=== PATIENT | female | born 1975 | race African-American/Black ===

== ENCOUNTER 2018-10-04 23:32 | Observation (INO) ==
[2018-10-05 01:10] LABS: Basophils % 0.3 %; Eosinophils # 0.1 K/mcL (0.0-0.6); Eosinophils % 1.4 %; Hematocrit 39.5 % (35.3-44.9); Hemoglobin 13.5 g/dL (11.5-15.4); Immature Granulocytes % 0.4 % (0-4); Lymphocytes # 2.5 K/mcL (0.6-4.6); Lymphocytes % 26.6 %; Mean Corpuscular HGB Conc 34.2 g/dL (31.6-35.5); Mean Corpuscular Hemoglobin 28.2 pg (28.0-33.3); Mean Corpuscular Volume 82.5 fL (83.0-100.0); Mean Platelet Volume 9.2 fL (9.4-12.4); Monocytes # 0.6 K/mcL (0.0-1.3); Monocytes % 6.9 %; Neutrophils # 5.9 K/mcL (1.6-8.9); Platelet Count 182 K/mcL (140-400); Red Blood Count 4.79 M/mcL (3.82-4.97); Red Cell Distribution Width 13.2 % (11.5-14.5); Segmented Neutrophils % 64.4 %
[2018-10-05] MEDS ORDERED: Nitroglycerin 0.4 MG TAB.SUBL SL PRN (01:15)
--- NOTE | 2018-10-05 01:15 | Emergency Department Note ---
Disposition Clinical Impression: Acute chest pain Disposition: Still a Patient Condition: Fair Instructions: Chest Pain (ED) Referrals: Jeannette Chan CNP [Primary Care Provider] - Forms: ED Satisfaction Letter Chest Pain HPI - General Chief Complaint: ED Chest Pain Stated Complaint: cp/jess/ left arm pain Time Seen by Provider: 10/04/18 23:46 Source: patient Mode of arrival: ambulatory Limitations: no limitations Vital Signs Reviewed: Yes Nursing Notes Reviewed: Yes - History of Present Illness HPI Narrative: 43-year-old female presents emergency Department with concerns of acute onset chest pain or difficulty breathing. Patient states the pain is sharp and stabbing center of her chest and radiates to left upper extremity. No history of cardiac disease however she does have a history of femoral aortic bypass Patient denies fever, chills, nausea, vomiting, diarrhea. She denies cough, recent trauma. Patient has not a long history of tobacco use. She has swelling of left lower extremity over the past 2-3 days. No history of cancer, recent travel, oral contraceptive use. Severity scale (1-10): 10 - Related Data Home Medications Medication Instructions Recorded Confirmed Amitriptyline [Elavil] 50 mg PO HS 08/24/18 08/24/18 Amlodipine Besylate 10 mg PO DAILY 08/24/18 08/24/18 Atorvastatin Calcium [Lipitor] 80 mg PO HS 08/24/18 08/24/18 Carvedilol [Coreg] 25 mg PO BID 08/24/18 08/24/18 Losartan Potassium [Cozaar] 100 mg PO DAILY 08/24/18 08/24/18 Melatonin 5 mg PO HS 08/24/18 08/24/18 Venlafaxine [Effexor] 37.5 mg PO BID 08/24/18 08/24/18 hydrOXYzine HCl [Hydroxyzine HCl] 50 mg PO Q8H PRN 08/24/18 08/24/18 Allergies Allergy/AdvReac Type Severity Reaction Status Date / Time meloxicam [From Mobic] Allergy Hives Verified 08/24/18 15:33 Sulfa (Sulfonamide Allergy Hives Verified 08/24/18 15:33 Antibiotics) All systems ED: reviewed and negative except as stated. 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 Bowel sounds present Neuro: A&O to person, place, time and situation. No focal deficits noted on exam Psychiatric: cooperative and appropriate mood and affect. - General Limitations: no limitations General appearance: alert, in no apparent distress Course Vital Signs Temperature 97.8 F 10/04/18 23:36 Pulse Rate 65 10/04/18 23:36 Respiratory Rate 16 10/04/18 23:36 Blood Pressure 158/95 10/04/18 23:36 O2 Sat by Pulse Oximetry 96 10/04/18 23:36 Temperature 97.8 F 10/04/18 23:36 Pulse Rate 72 10/05/18 01:29 Respiratory Rate 18 10/05/18 01:29 Blood Pressure 146/84 10/05/18 01:29 O2 Sat by Pulse Oximetry 96 10/05/18 01:29 Oxygen Delivery Oxygen Delivery Room Air Chest Pain - MDM Narrative Medical decision making narrative: Initial troponin negative. D-dimer elevated. Patient will receive CTA. She is high risk for cardiac disease and will likely be admitted for further care. Patient care was transferred to Dr. Rouse pending reevaluation, laboratory evaluation, CTA. - Medical Records Medical records reviewed: Yes I reviewed the patient's medical records. - Lab Data Lab results reviewed: Yes I reviewed the patient's lab results. Result diagrams: 10/05/18 00:51 10/05/18 00:51 Lab Results 10/05/18 10/05/18 10/05/18 Range/Units 00:51 00:51 00:51 WBC 9.2 (4.3-11.1) K/mcL RBC 4.79 (3.82-4.97) M/mcL Hgb 13.5 (11.5-15.4) g/dL Hct 39.5 (35.3-44.9) % MCV 82.5 L (83.0-100.0) fL MCH 28.2 (28.0-33.3) pg MCHC 34.2 (31.6-35.5) g/dL RDW 13.2 (11.5-14.5) % Plt Count 182 (140-400) K/mcL MPV 9.2 L (9.4-12.4) fL Immature Gran % 0.4 (0-4) % Seg Neutrophils % 64.4 % Lymphocytes % 26.6 % Monocytes % 6.9 % Eosinophils % 1.4 % Basophils % 0.3 % Neutrophils # 5.9 (1.6-8.9) K/mcL Lymphocytes # 2.5 (0.6-4.6) K/mcL Monocytes # 0.6 (0.0-1.3) K/mcL Eosinophils # 0.1 (0.0-0.6) K/mcL Basophils # 0.0 (0.0-0.2) K/mcL PT 11.3 (9.4-12.1) Seconds INR 1.0 APTT 65.1 H (26.0-36.0) Seconds D-Dimer (0-500) ng/mLFEU Sodium 138 (136-145) mEq/L Potassium 3.4 L (3.5-5.1) mEq/L Chloride 104 (98-107) mEq/L Carbon Dioxide 25 (23-29) mEq/L BUN 16 (6-20) mg/dL Creatinine 0.86 (0.60-1.20) mg/dL Est GFR ( Amer) > 60 (> 60) Est GFR (Non-Af Amer) > 60 (> 60) BUN/Creatinine Ratio 19 (6-26) Glucose 120 H (70-105) mg/dL Calculated Osmolality 288 (280-300) Calcium 9.7 (8.6-10.3) mg/dL Troponin I < 0.03 (< 0.04) ng/mL 10/05/18 Range/Units 00:51 WBC (4.3-11.1) K/mcL RBC (3.82-4.97) M/mcL Hgb (11.5-15.4) g/dL Hct (35.3-44.9) % MCV (83.0-100.0) fL MCH (28.0-33.3) pg MCHC (31.6-35.5) g/dL RDW (11.5-14.5) % Plt Count (140-400) K/mcL MPV (9.4-12.4) fL Immature Gran % (0-4) % Seg Neutrophils % % Lymphocytes % % Monocytes % % Eosinophils % % Basophils % % Neutrophils # (1.6-8.9) K/mcL Lymphocytes # (0.6-4.6) K/mcL Monocytes # (0.0-1.3) K/mcL Eosinophils # (0.0-0.6) K/mcL Basophils # (0.0-0.2) K/mcL PT (9.4-12.1) Seconds INR APTT (26.0-36.0) Seconds D-Dimer 2477 H (0-500) ng/mLFEU Sodium (136-145) mEq/L Potassium (3.5-5.1) mEq/L Chloride (98-107) mEq/L Carbon Dioxide (23-29) mEq/L BUN (6-20) mg/dL Creatinine (0.60-1.20) mg/dL Est GFR ( Amer) (> 60) Est GFR (Non-Af Amer) (> 60) BUN/Creatinine Ratio (6-26) Glucose (70-105) mg/dL Calculated Osmolality (280-300) Calcium (8.6-10.3) mg/dL Troponin I (< 0.04) ng/mL - Radiology Data Radiology results reviewed: Yes I reviewed the patient's radiology results. - EKG Data EKG attestation: Yes I reviewed and interpreted this EKG. EKG results narrative: Normal sinus rhythm with rate of 69 without evidence of STEMI or other dysrhythmia. QRS is 99, QTC 454. Heart Score - Score History: Moderately Suspicious EKG: Normal Age: 45-65 Risk Factors: 1-2 risk factors
[2018-10-05 01:17] LABS: Prothrombin Time 11.3 Seconds (9.4-12.1)
[2018-10-05 01:20] LABS: Activated Partial Thrombo Time 65.1 Seconds (26.0-36.0)
[2018-10-05 01:32] LABS: BUN/Creatinine Ratio 19 (6-26); Blood Urea Nitrogen 16 mg/dL (6-20); Calcium 9.7 mg/dL (8.6-10.3); Carbon Dioxide 25 mEq/L (23-29); Chloride 104 mEq/L (98-107); Glucose 120 mg/dL (70-105); Osmolality,Calculated 288 (280-300); Potassium 3.4 mEq/L (3.5-5.1); Sodium 138 mEq/L (136-145); Troponin I < 0.03 ng/mL (< 0.04); eGFR For Non-African Americans > 60 (> 60)
[2018-10-05] MEDS ORDERED: Isovue-370 500 ML INFUS..BTL IV ONE (01:39)
[2018-10-05] MEDS ORDERED: Acetaminophen 325 MG TABLET PO ONE (01:40)
--- NOTE | 2018-10-05 02:13 | Emergency Department Note ---
Disposition Clinical Impression: Acute chest pain Disposition: Admitted As Inpatient Condition: Fair Instructions: Chest Pain (ED) Referrals: Jeannette Chan, KYARA [Primary Care Provider] - Forms: ED Satisfaction Letter Time of Disposition: 04:37 General Adult HPI - General Chief complaint: ED Chest Pain Stated complaint: cp/jess/ left arm pain Time Seen by Provider: 10/04/18 23:46 Source: patient Mode of arrival: ambulatory Limitations: no limitations - History of Present Illness Pain Scale: 10 - Related Data Home Medications Medication Instructions Recorded Confirmed Amitriptyline [Elavil] 50 mg PO HS 08/24/18 08/24/18 Amlodipine Besylate 10 mg PO DAILY 08/24/18 08/24/18 Atorvastatin Calcium [Lipitor] 80 mg PO HS 08/24/18 08/24/18 Carvedilol [Coreg] 25 mg PO BID 08/24/18 08/24/18 Losartan Potassium [Cozaar] 100 mg PO DAILY 08/24/18 08/24/18 Melatonin 5 mg PO HS 08/24/18 08/24/18 Venlafaxine [Effexor] 37.5 mg PO BID 08/24/18 08/24/18 hydrOXYzine HCl [Hydroxyzine HCl] 50 mg PO Q8H PRN 08/24/18 08/24/18 Allergies Allergy/AdvReac Type Severity Reaction Status Date / Time meloxicam [From Mobic] Allergy Hives Verified 08/24/18 15:33 Sulfa (Sulfonamide Allergy Hives Verified 08/24/18 15:33 Antibiotics) Past Medical History - Past Medical History Medical history: Reports: fibromyalgia, hypertension, TIA, other Surgical history: Reports: other Psychiatric history: Reports: anxiety, depression DEAN OF GIRLS history: Reports: no DEAN OF GIRLS history - Social History Smoking Status: Current every day smoker Smokeless Tobacco Status: No Alcohol use: Reports: occasionally Drug use: Reports: none Physical Exam - General Limitations: no limitations General appearance: alert, in no apparent distress Course Course Narrative: This patient was signed out to me at shift change from Dr. Jhoan Barrett. Please refer to his note for complete details of the history and physical examination. At shift change patient is awaiting a CTA of the chest to rule out pulmonary embolism prior to admission for chest pain. Patient presented with some left- sided chest pain which started about 9:30 this evening. The pain radiated to the left arm. She complains of some numbness and tingling in the left arm. Cardiac workup is negative but patient did have a significantly elevated d- dimer. She does complain of some increased pain and swelling in the left lower leg from the knee to the ankle recently however she has chronic back pain and peripheral artery disease. On exam I do not appreciate any swelling of the left lower leg. Patient CTA was negative for any evidence of pulmonary embolism. She did receive nitroglycerin with total relief of her chest pain. The hospitalist, Dr. Mtz, was consulted and accepted admission of the patient. - Consultations Consultation #1: The hospitalist, Dr. Mtz, was consulted and accepted admission of the patient. Time: 04:37 Vital Signs Temperature 97.8 F 10/04/18 23:36 Pulse Rate 65 10/04/18 23:36 Respiratory Rate 16 10/04/18 23:36 Blood Pressure 158/95 10/04/18 23:36 O2 Sat by Pulse Oximetry 96 10/04/18 23:36 Temperature 97.8 F 10/04/18 23:36 Pulse Rate 72 10/05/18 01:29 Respiratory Rate 18 10/05/18 01:29 Blood Pressure 146/84 10/05/18 01:29 O2 Sat by Pulse Oximetry 96 10/05/18 01:29 Oxygen Delivery Oxygen Delivery Room Air Medical Decision Making - Lab Data Lab results reviewed: Yes I reviewed the patient's lab results. Result diagrams: 10/05/18 00:51 10/05/18 00:51 Lab Results 10/05/18 10/05/18 10/05/18 Range/Units 00:51 00:51 00:51 WBC 9.2 (4.3-11.1) K/mcL RBC 4.79 (3.82-4.97) M/mcL Hgb 13.5 (11.5-15.4) g/dL Hct 39.5 (35.3-44.9) % MCV 82.5 L (83.0-100.0) fL MCH 28.2 (28.0-33.3) pg MCHC 34.2 (31.6-35.5) g/dL RDW 13.2 (11.5-14.5) % Plt Count 182 (140-400) K/mcL MPV 9.2 L (9.4-12.4) fL Immature Gran % 0.4 (0-4) % Seg Neutrophils % 64.4 % Lymphocytes % 26.6 % Monocytes % 6.9 % Eosinophils % 1.4 % Basophils % 0.3 % Neutrophils # 5.9 (1.6-8.9) K/mcL Lymphocytes # 2.5 (0.6-4.6) K/mcL Monocytes # 0.6 (0.0-1.3) K/mcL Eosinophils # 0.1 (0.0-0.6) K/mcL Basophils # 0.0 (0.0-0.2) K/mcL PT 11.3 (9.4-12.1) Seconds INR 1.0 APTT 65.1 H (26.0-36.0) Seconds D-Dimer (0-500) ng/mLFEU Sodium 138 (136-145) mEq/L Potassium 3.4 L (3.5-5.1) mEq/L Chloride 104 (98-107) mEq/L Carbon Dioxide 25 (23-29) mEq/L BUN 16 (6-20) mg/dL Creatinine 0.86 (0.60-1.20) mg/dL Est GFR ( Amer) > 60 (> 60) Est GFR (Non-Af Amer) > 60 (> 60) BUN/Creatinine Ratio 19 (6-26) Glucose 120 H (70-105) mg/dL Calculated Osmolality 288 (280-300) Calcium 9.7 (8.6-10.3) mg/dL Troponin I < 0.03 (< 0.04) ng/mL 10/05/18 Range/Units 00:51 WBC (4.3-11.1) K/mcL RBC (3.82-4.97) M/mcL Hgb (11.5-15.4) g/dL Hct (35.3-44.9) % MCV (83.0-100.0) fL MCH (28.0-33.3) pg MCHC (31.6-35.5) g/dL RDW (11.5-14.5) % Plt Count (140-400) K/mcL MPV (9.4-12.4) fL Immature Gran % (0-4) % Seg Neutrophils % % Lymphocytes % % Monocytes % % Eosinophils % % Basophils % % Neutrophils # (1.6-8.9) K/mcL Lymphocytes # (0.6-4.6) K/mcL Monocytes # (0.0-1.3) K/mcL Eosinophils # (0.0-0.6) K/mcL Basophils # (0.0-0.2) K/mcL PT (9.4-12.1) Seconds INR APTT (26.0-36.0) Seconds D-Dimer 2477 H (0-500) ng/mLFEU Sodium (136-145) mEq/L Potassium (3.5-5.1) mEq/L Chloride (98-107) mEq/L Carbon Dioxide (23-29) mEq/L BUN (6-20) mg/dL Creatinine (0.60-1.20) mg/dL Est GFR ( Amer) (> 60) Est GFR (Non-Af Amer) (> 60) BUN/Creatinine Ratio (6-26) Glucose (70-105) mg/dL Calculated Osmolality (280-300) Calcium (8.6-10.3) mg/dL Troponin I (< 0.04) ng/mL - Radiology Data Radiology results reviewed: Yes I reviewed the patient's radiology results. Chest X-Ray 10/05/18 00:00 IMPRESSION: No acute cardiopulmonary process D/ / Oscar Chaney / Oscar Chaney Interpreting Provider: Oscar Chaney Chest CTA 10/05/18 01:39 IMPRESSION: 1. No definite scan evidence for pulmonary embolus. 2. Coronary artery disease. 3. Emphysema. D/ / Wes Rocha MD / Wes Rocha MD Interpreting Provider: Wes Rocha MD
[2018-10-05] MEDS ORDERED: *HR* HYDROcodone/Acet 5/325 mg TABLET PO ONE (04:38)
[2018-10-05] MEDS ORDERED: Acetaminophen/Aspirin/Caffeine TABLET PO ONE (06:57)
[2018-10-05] MEDS ORDERED: Naloxone 0.4 MG/ML INJ IVP PRN (08:41)
[2018-10-05] MEDS ORDERED: Acetaminophen 325 MG TABLET PO PRN ×2 (08:41→08:43)
--- NOTE | 2018-10-05 09:13 | Internal Med History&Physical ---
Date of Encounter: 10/05/18 Time of Encounter: 09:07 Internal Medicine - H&P: HPI Chief complaint: CP Admitted From: Emergency Dept Plans for Post Hospital Care: Home History of present illness: Ms. 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 Presented to [facility] with complaints of CP that started while she was putting up a thierry tree. Pain started midsternal and radiated to L arm described the pain as heavy- as if someone was pushing on her chest and she had numbness tingling to L arm. The pain was relieved with nitroglycerine X1 . Endorsed associated sx of SOB nausea and lightheadedness. Patient is 1 ppd smoker Intial troponin was negative EKG with no ST T wave abnormality. She did have a stress test several years ago and it was normal per patient report. Currently she complains of headache but no CP at this time. Past Med Surg Social Fam HX - Past Medical History Medical history: fibromyalgia, hypertension, TIA, other Additional medical history: lupus Psychiatric history: anxiety, depression - Past Surgical History Surgical History: other Additional surgical history: hernia repair w/mesh. artery bypass in abdomen - Social History Smoking Status: Current every day smoker Smokeless Tobacco Status: No Alcohol use: occasionally Drug use: none - Family History Mother Living Status: Age at : 54 Cause of : heart attack/ stroke Hx Family Cardiac Disorders: Yes Father Living Status: Still Living Age at : 89 Hx Family Cardiac Disorders: Yes (defib, htn) Sister Living Status: Still Living Age at : 50 Hx Family Cardiac Disorders: Yes (stroke) Internal Medicine - H&P: Meds Amitriptyline [Elavil] 50 mg PO HS 08/24/18 [History] Amlodipine Besylate 10 mg PO DAILY 08/24/18 [History] Atorvastatin Calcium [Lipitor] 80 mg PO HS 08/24/18 [History] Carvedilol [Coreg] 25 mg PO BID 08/24/18 [History] Losartan Potassium [Cozaar] 100 mg PO DAILY 08/24/18 [History] Melatonin 5 mg PO HS 08/24/18 [History] Venlafaxine [Effexor] 37.5 mg PO BID 08/24/18 [History] hydrOXYzine HCl [Hydroxyzine HCl] 50 mg PO Q8H PRN 08/24/18 [History] Allergy/AdvReac Type Severity Reaction Status Date / Time meloxicam [From [facility]] Allergy Hives Verified 08/24/18 15:33 Sulfa (Sulfonamide Allergy Hives Verified 08/24/18 15:33 Antibiotics) All Systems PM: A 10-system review of systems was performed and is negative for pertinent findings except as documented above in the HPI. - Constitutional Vitals: Temp Pulse Resp BP Pulse Ox 97.7 F 74 17 134/92 97 10/05/18 06:37 10/05/18 06:37 10/05/18 06:37 10/05/18 06:37 10/05/18 06:37 General appearance: Present: A&O X 3 Exam: . - Head Head exam: Present: atraumatic, normocephalic - Eye Eye exam: Present: PERRL, conjuntiva pink, sclera anicteric Pupils: Present: PERRL - Neck Neck exam general surgery: Present: supple, trachea midline. Absent: lymphadenopathy - Respiratory Respiratory exam: Present: CTAB. Absent: accessory muscle use, rales, rhonchi, wheezes - Cardiovascular Cardiovascular exam: Present: RRR, +S1, +S2. Absent: diastolic murmur, gallop, rubs, systolic murmur - GI/Abdominal GI/Abdominal exam: Present: normal bowel sounds, soft, no peritoneal signs. Absent: distended, tenderness - Extremities Exam Extremities exam: Present: warm, radial pulses palpable and symmetrical. Absent: calf tenderness, cyanotic, pedal edema - Neurological Exam Neurological exam: Present: CN II-XII intact, oriented X3, no focal deficits. Absent: pronater drift, facial droop, speech deficit - Skin Skin exam: Present: dry, intact Internal Med - H&P Results - Labs CBC & Chem 7: 10/05/18 00:51 10/05/18 00:51 Labs: Short CBC 10/05/18 Range/Units 00:51 WBC 9.2 (4.3-11.1) K/mcL Hgb 13.5 (11.5-15.4) g/dL Hct 39.5 (35.3-44.9) % Plt Count 182 (140-400) K/mcL Neutrophils # 5.9 (1.6-8.9) K/mcL BMP 10/05/18 00:51 Sodium 138 Potassium 3.4 L Chloride 104 Carbon Dioxide 25 BUN 16 Creatinine 0.86 Glucose 120 H Calcium 9.7 Cardiac Enzymes 10/05/18 Range/Units 00:51 Troponin I < 0.03 (< 0.04) ng/mL - Impressions ITS Impressions Chest X-Ray 10/05/18 00:00 IMPRESSION: No acute cardiopulmonary process D/ / Oscar Chaney / Oscar Chaney Interpreting Provider: Oscar Chaney Chest CTA 10/05/18 01:39 IMPRESSION: 1. No definite scan evidence for pulmonary embolus. 2. Coronary artery disease. 3. Emphysema. D/ / Wes Rocha MD / Wes Rocha MD Interpreting Provider: Wes Rocha MD - Assessment and plan (1) Acute chest pain Current Visit: Yes Status: Acute Assessment and plan: 1 Presented with L sided CP radiating to L arm relieved with nitro- elevated d dimer CTA negative Trop negative Ekg with no ST T wave abnormality Echo ordered Cardiac stress test- 2 day Asa Statin BB TALON once confirmed nitro as needed for CP cardiac monitoring (2) DVT prophylaxis Current Visit: No Status: Acute (3) HLD (hyperlipidemia) Current Visit: No Status: Acute Qualifiers: Hyperlipidemia type: unspecified Qualified Code(s): E78.5 - Hyperlipidemia, unspecified (4) HTN (hypertension), benign Current Visit: No Status: Acute (5) QUIRINO (obstructive sleep apnea) Current Visit: No Status: Acute - Time Spent With Patient Total time spent is greater than 50% in coordination of care (as documented) at patient's floor/unit and/or counseling patient:
[2018-10-05] MEDS ORDERED: Ketorolac 15 MG/ML VIAL IVP ONE (11:40)
[2018-10-05] MEDS ORDERED: Regadenoson 0.4 MG/5 ML SYRINGE IVP ONE ×2 (12:28→12:32)
[2018-10-05] MEDS: *HR* HYDROcodone/Acet 5/325 mg TABLET PO PRN ×2 (13:50→20:34)
[2018-10-06] MEDS ORDERED: Melatonin 3 MG TABLET PO PRN (00:40)
[2018-10-06 03:43] LABS: Basophils % 0.4 %; Eosinophils # 0.1 K/mcL (0.0-0.6); Eosinophils % 1.8 %; Hematocrit 40.8 % (35.3-44.9); Hemoglobin 13.2 g/dL (11.5-15.4); Immature Granulocytes % 0.4 % (0-4); Lymphocytes # 2.2 K/mcL (0.6-4.6); Lymphocytes % 31.3 %; Mean Corpuscular HGB Conc 32.4 g/dL (31.6-35.5); Mean Corpuscular Hemoglobin 27.2 pg (28.0-33.3); Mean Corpuscular Volume 84.1 fL (83.0-100.0); Mean Platelet Volume 9.1 fL (9.4-12.4); Monocytes # 0.7 K/mcL (0.0-1.3); Monocytes % 9.1 %; Neutrophils # 4.1 K/mcL (1.6-8.9); Platelet Count 198 K/mcL (140-400); Red Blood Count 4.85 M/mcL (3.82-4.97); Red Cell Distribution Width 13.2 % (11.5-14.5)
[2018-10-06 04:01] LABS: Blood Urea Nitrogen 13 mg/dL (6-20); Calcium 9.1 mg/dL (8.6-10.3); Carbon Dioxide 26 mEq/L (23-29); Chloride 106 mEq/L (98-107); Cholesterol 145 mg/dL (< 200); Glucose 123 mg/dL (70-105); HDL Cholesterol 49 mg/dL (40-59); LDL Cholesterol,Calculated 73 mg/dL (0-99); Osmolality,Calculated 291 (280-300); Potassium 3.6 mEq/L (3.5-5.1); Sodium 140 mEq/L (136-145); Triglycerides 114 mg/dL (< 150)
[2018-10-06] MEDS: *HR* HYDROcodone/Acet 5/325 mg TABLET PO PRN ×2 (04:32→13:34)
[2018-10-06 05:00] LABS: BUN/Creatinine Ratio 15 (6-26); eGFR For Non-African Americans > 60 (> 60)
[2018-10-06] MEDS ORDERED: Aspirin 81 MG TAB.CHEW PO SCH (09:00)
--- NOTE | 2018-10-06 10:03 | Electrocardiograph Report ---
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
--- NOTE | 2018-10-06 16:48 | Discharge Summary ---
- NOTES TO OUTPATIENT PROVIDER Notes to Outpatient Provider: Presented with cp - trop negative echo with EF 55- 60% mild diastolic dysfunction -chest CTA negative underwent 2 days cardiac stress which was negative for any ischemia or infarct Orders not resulted at time of discharge: Pending orders 10/05/18 09:14 NM maci perf SPECT multi [NM] Routine Date of Encounter: 10/06/18 Time of Encounter: 16:48 - Discharge Diagnosis (1) Acute chest pain Priority: Primary Status: Acute (2) HLD (hyperlipidemia) Priority: Secondary Status: Acute Qualifiers: Hyperlipidemia type: unspecified Qualified Code(s): E78.5 - Hyperlipidemia, unspecified (3) HTN (hypertension), benign Priority: Secondary Status: Acute (4) QUIRINO (obstructive sleep apnea) Priority: Secondary Status: Acute Hospital course: Ms. 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 Presented to [facility] with complaints of CP that started while she was putting up a thierry tree. Pain started midsternal and radiated to L arm described the pain as heavy- as if someone was pushing on her chest and she had numbness tingling to L arm. The pain was relieved with nitroglycerine X1 . Endorsed associated sx of SOB nausea and lightheadedness. Patient is 1 ppd smoker troponin was negativex [address] T wave abnormality echo with EF 55-60% she underwent a 2 day stress test which was negative for any ischemia of infarct. She has not had any CP during admission. She did have a slight elevation of BP because she did not have home medications- home medications resumed- advised patient to follow up with PCP since this provider knows her best and can adjust medications accordingly She is hemodynamically stable and ready for discharge Patient requesting prescription for pain medication advised patient to follow up with PCP Discharge discussed with: patient - Time Spent with Patient Total time spent providing and/or coordinating discharge services: - Discharge Medications Home Medications: Amitriptyline [Elavil] 50 mg PO HS 08/24/18 [History] Atorvastatin Calcium [Lipitor] 80 mg PO HS 08/24/18 [History] Melatonin 10 mg PO HS 08/24/18 [History] hydrOXYzine HCl [Hydroxyzine HCl] 50 mg PO Q8H PRN 08/24/18 [History] Aspirin [Lo-Dose Aspirin EC] 81 mg PO DAILY 10/06/18 [History] Duloxetine HCl [Cymbalta] 60 mg PO BID 10/06/18 [History] Fluticasone Propionate Nasal [Flonase] 1 spray NS BID 10/06/18 [History] Ipratropium [place] 1 spray NS BID 10/06/18 [History] Labetalol HCl 300 mg PO BID 10/06/18 [History] amLODIPine [Norvasc] 5 mg PO DAILY 10/06/18 [History] Allergies/Adverse Reactions: Allergy/AdvReac Type Severity Reaction Status Date / Time meloxicam [From Mobic] Allergy Hives Verified 10/06/18 08:42 Sulfa (Sulfonamide Allergy Hives Verified 10/06/18 08:42 Antibiotics) Date of admission: 10/05/18 05:38 Primary care physician: Jeannette Chan [employer] Discharging clinician: Corie Mejias Anticipated date of discharge: 10/06/18 - Constitutional Vitals: Temp Pulse Resp BP Pulse Ox 98.2 F 83 17 158/99 97 10/06/18 15:44 10/06/18 15:44 10/06/18 15:44 10/06/18 15:44 10/06/18 15:44 General appearance: Present: A&O X 3, obese Exam: . - Head Head exam: Present: atraumatic, normocephalic - Eye Eye exam: Present: PERRL, conjuntiva pink, sclera anicteric Pupils: Present: PERRL - Neck Neck exam general surgery: Present: supple, trachea midline. Absent: lymphadenopathy - Respiratory Respiratory exam: Present: CTAB. Absent: accessory muscle use, rales, rhonchi, wheezes - Cardiovascular Cardiovascular exam: Present: RRR, +S1, +S2. Absent: diastolic murmur, gallop, rubs, systolic murmur - GI/Abdominal GI/Abdominal exam: Present: normal bowel sounds, soft, no peritoneal signs. Absent: distended, tenderness - Extremities Exam Extremities exam: Present: warm, radial pulses palpable and symmetrical. Absent: calf tenderness, cyanotic, pedal edema - Neurological Exam Neurological exam: Present: CN II-XII intact, oriented X3, no focal deficits. Absent: pronater drift, facial droop, speech deficit - Skin Skin exam: Present: dry, intact - Patient Status Disposition: Home, Self-Care Condition: Fair Functional capacity at discharge: independent ambulation - Discharge Instructions Instructions: Chest Pain (DC) Follow Up With: Jeannette Chan CNP [Primary Care Provider] - 10/12/18 10:30 am () Federico Hand DO [Partnered Physician] - 10/19/18 8:00 am - Diet and Activity Activity: increase activity as tolerated Diet: advance to your usual diet
[2018-10-06] MEDS ORDERED: amLODIPine 5 MG TABLET PO SCH (17:24)
[2018-10-06 18:18] VITALS: BP 143/93
[2018-10-07] MEDS ORDERED: Aspirin Enteric Coated 81 MG Tablet PO SCH (09:00)
[2018-10-07] MEDS ORDERED: amLODIPine 5 MG TABLET PO SCH (16:46)
--- NOTE | 2018-10-07 18:02 | Electrocardiograph Report ---
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
== END 2018-10-06 18:22 | disposition home or self-care (01) ==
LOC: EMEROOARM 23:32 → 3BNU 23:32
PROVIDERS: ADMIT Internal Medicine; ATTEND Internal Medicine

== ENCOUNTER 2020-03-01 15:36 | Inpatient (IN) ==
[2020-03-01] MEDS ORDERED: Aspirin 325 MG TABLET PO ONE (16:09)
[2020-03-01 16:22] LABS: Basophils % 0.3 %; Eosinophils # 0.1 K/mcL (0.0-0.6); Eosinophils % 0.5 %; Hematocrit 51.2 % (35.3-44.9); Hemoglobin 16.9 g/dL (11.5-15.4); Immature Granulocytes % 0.9 % (0-4); Lymphocytes # 3.5 K/mcL (0.6-4.6); Lymphocytes % 24.2 %; Mean Corpuscular Hemoglobin 26.5 pg (28.0-33.3); Mean Corpuscular Volume 80.4 fL (83.0-100.0); Mean Platelet Volume 9.8 fL (9.4-12.4); Monocytes # 0.8 K/mcL (0.0-1.3); Monocytes % 5.6 %; Platelet Count 225 K/mcL (140-400); Red Blood Count 6.37 M/mcL (3.82-4.97); Red Cell Distribution Width 15.6 % (11.5-14.5); Segmented Neutrophils % 68.5 %; White Blood Count 14.6 K/mcL (4.3-11.1)
[2020-03-01 16:30] LABS: BUN/Creatinine Ratio 18 (6-26); Blood Urea Nitrogen 15 mg/dL (6-20); Calcium 9.4 mg/dL (8.6-10.3); Carbon Dioxide 28 mEq/L (23-29); Chloride 99 mEq/L (98-107); Glucose 199 mg/dL (70-105); Osmolality,Calculated 290 (280-300); Potassium 3.2 mEq/L (3.5-5.1); Sodium 137 mEq/L (136-145); Troponin I < 0.03 ng/mL (< 0.04); eGFR For African Americans > 60 (> 60); eGFR For Non-African Americans > 60 (> 60)
[2020-03-01] MEDS ORDERED: Isovue-370 500 ML BOTTLE IVP ONE (17:39)
[2020-03-02] MEDS ORDERED: Naloxone 0.4 MG/ML INJ IVP PRN (00:53)
[2020-03-02] MEDS ORDERED: hydrOXYzine pamoate 25 MG CAPSULE PO PRN (00:55)
[2020-03-02] MEDS: Nicotine 21 MG PATCH.TD24 TD SCH ×2 (01:31→21:12)
[2020-03-02] MEDS: Melatonin 3 MG TABLET PO SCH (01:31)
[2020-03-02] MEDS ORDERED: Potassium Chloride 40 MEQ, Lidocaine 1% 2 ML in 0.9 % Sodium Chloride 500 ML IVPB ONE (03:00)
[2020-03-02] MEDS ORDERED: Ondansetron 4 MG/2 ML VIAL IVP PRN (04:58)
[2020-03-02] MEDS: *HR* Heparin 5,000 UNIT/ML VIAL SQ SCH ×2 (05:18→17:20)
[2020-03-02 06:18] LABS: Hematocrit 46.2 % (35.3-44.9); Hemoglobin 15.4 g/dL (11.5-15.4); Mean Corpuscular HGB Conc 33.3 g/dL (31.6-35.5); Mean Corpuscular Hemoglobin 26.7 pg (28.0-33.3); Mean Corpuscular Volume 80.1 fL (83.0-100.0); Mean Platelet Volume 9.2 fL (9.4-12.4); Platelet Count 187 K/mcL (140-400); Red Blood Count 5.77 M/mcL (3.82-4.97); White Blood Count 11.5 K/mcL (4.3-11.1)
[2020-03-02 06:42] LABS: BUN/Creatinine Ratio 19 (6-26); Blood Urea Nitrogen 14 mg/dL (6-20); Calcium 8.7 mg/dL (8.6-10.3); Carbon Dioxide 26 mEq/L (23-29); Chloride 100 mEq/L (98-107); Glucose 158 mg/dL (70-105); Osmolality,Calculated 286 (280-300); Potassium 3.2 mEq/L (3.5-5.1); Sodium 136 mEq/L (136-145); eGFR For African Americans > 60 (> 60); eGFR For Non-African Americans > 60 (> 60)
[2020-03-02] MEDS: Aspirin Enteric Coated 81 MG Tablet PO SCH (08:18)
[2020-03-02] MEDS: tiZANidine 4 MG TABLET PO SCH ×3 (08:18→21:11)
[2020-03-02] MEDS: Gabapentin 300 MG CAPSULE PO SCH ×3 (08:18→21:11)
[2020-03-02] MEDS: amLODIPine 5 MG TABLET PO SCH (08:18)
[2020-03-02 11:22] LABS: Estimated Average Glucose 169 mg/dl
[2020-03-02] MEDS: 0.9 % Sodium Chloride 1,000 ML IV SCH (17:20)
[2020-03-03] MEDS: Melatonin 3 MG TABLET PO SCH (00:16)
[2020-03-03 05:16] LABS: Basophils % 0.4 %; Eosinophils # 0.1 K/mcL (0.0-0.6); Eosinophils % 0.6 %; Hematocrit 45.3 % (35.3-44.9); Hemoglobin 14.3 g/dL (11.5-15.4); Immature Granulocytes % 0.6 % (0-4); Lymphocytes % 18.5 %; Mean Corpuscular HGB Conc 31.6 g/dL (31.6-35.5); Mean Corpuscular Volume 82.2 fL (83.0-100.0); Mean Platelet Volume 9.8 fL (9.4-12.4); Monocytes # 0.9 K/mcL (0.0-1.3); Neutrophils # 7.8 K/mcL (1.6-8.9); Platelet Count 202 K/mcL (140-400); Red Blood Count 5.51 M/mcL (3.82-4.97); Red Cell Distribution Width 15.4 % (11.5-14.5); Segmented Neutrophils % 71.9 %; White Blood Count 10.9 K/mcL (4.3-11.1)
[2020-03-03] MEDS: *HR* Heparin 5,000 UNIT/ML VIAL SQ SCH (05:19)
[2020-03-03 05:32] LABS: BUN/Creatinine Ratio 17 (6-26); Blood Urea Nitrogen 14 mg/dL (6-20); Calcium 8.5 mg/dL (8.6-10.3); Carbon Dioxide 25 mEq/L (23-29); Chloride 102 mEq/L (98-107); Chol/HDL Ratio 3.5 (0-4.9); Cholesterol 173 mg/dL (< 200); Glucose 120 mg/dL (70-105); HDL Cholesterol 50 mg/dL (40-59); LDL Cholesterol,Calculated 90 mg/dL (0-99); Osmolality,Calculated 282 (280-300); Potassium 3.7 mEq/L (3.5-5.1); Sodium 135 mEq/L (136-145); Triglycerides 163 mg/dL (< 150); eGFR For African Americans > 60 (> 60); eGFR For Non-African Americans > 60 (> 60)
[2020-03-03] MEDS: 0.9 % Sodium Chloride 1,000 ML IV SCH (07:21)
[2020-03-03] MEDS: amLODIPine 5 MG TABLET PO SCH ×2 (07:25→07:45)
[2020-03-03] MEDS: Aspirin Enteric Coated 81 MG Tablet PO SCH (07:25)
[2020-03-03] MEDS: Gabapentin 300 MG CAPSULE PO SCH (07:25)
[2020-03-03] MEDS: tiZANidine 4 MG TABLET PO SCH (07:25)
[2020-03-03] MEDS ORDERED: Regadenoson 0.4 MG/5 ML SYRINGE IVP ONE (07:59)
[2020-03-03 09:15] VITALS: BP 160/91
== END 2020-03-03 14:46 | disposition home or self-care (01) | DRG 206 ==
LOC: 3BNU 15:36 → EMEROOARM 15:36 → SUATTDRO 19:22 → 3BNU 19:58
PROVIDERS: ADMIT Family Medicine; ATTEND Internal Medicine

== ENCOUNTER 2020-07-15 13:03 | Observation (INO) ==
[2020-07-15] MEDS ORDERED: amLODIPine 5 MG TABLET PO SCH (13:30)
[2020-07-15 14:10] LABS: Basophils % 0.3 %; Eosinophils # 0.1 K/mcL (0.0-0.6); Eosinophils % 1.4 %; Hematocrit 47.1 % (35.3-44.9); Hemoglobin 15.4 g/dL (11.5-15.4); Immature Granulocytes % 0.3 % (0-4); Lymphocytes # 1.5 K/mcL (0.6-4.6); Lymphocytes % 20.5 %; Mean Corpuscular HGB Conc 32.7 g/dL (31.6-35.5); Mean Corpuscular Hemoglobin 27.3 pg (28.0-33.3); Mean Corpuscular Volume 83.5 fL (83.0-100.0); Mean Platelet Volume 9.4 fL (9.4-12.4); Monocytes # 0.5 K/mcL (0.0-1.3); Monocytes % 6.6 %; Neutrophils # 5.2 K/mcL (1.6-8.9); Platelet Count 234 K/mcL (140-400); Red Blood Count 5.64 M/mcL (3.82-4.97); Red Cell Distribution Width 15.5 % (11.5-14.5); Segmented Neutrophils % 70.9 %; White Blood Count 7.3 K/mcL (4.3-11.1)
[2020-07-15 14:33] LABS: Alanine Aminotransferase 12 Units/L (7-52); Albumin 4.2 g/dL (3.5-5.7); Albumin/Globulin Ratio 1.4 (1.1-2.2); Alkaline Phosphatase 97 Units/L (34-104); Aspartate Amino Transferase 14 Units/L (13-39); BUN/Creatinine Ratio 13 (6-26); Bilirubin,Total 0.6 mg/dL (0.3-1.0); Blood Urea Nitrogen 10 mg/dL (6-20); Calcium 9.5 mg/dL (8.6-10.3); Carbon Dioxide 27 mEq/L (23-29); Chloride 99 mEq/L (98-107); Globulin 2.9 g/dL (2.4-3.5); Glucose 124 mg/dL (70-105); Osmolality,Calculated 286 (280-300); Potassium 3.4 mEq/L (3.5-5.1); Sodium 138 mEq/L (136-145); Total Protein 7.1 g/dL (6.4-8.9); Troponin I < 0.03 ng/mL (< 0.04); eGFR For African Americans > 60 (> 60); eGFR For Non-African Americans > 60 (> 60)
[2020-07-15] MEDS: atenoloL 25 MG TABLET PO SCH (14:34)
[2020-07-15] MEDS ORDERED: *HR* Labetalol 20 MG/4 ML SYRINGE IVP ONE ×2 (16:13→17:12)
[2020-07-15] MEDS ORDERED: Metoclopramide 10 MG/2 ML VIAL IVP ONE (17:27)
[2020-07-15] MEDS ORDERED: Acetaminophen 325 MG TABLET PO PRN (20:02)
[2020-07-15] MEDS ORDERED: Naloxone 0.4 MG/ML INJ IVP PRN (20:02)
[2020-07-15] MEDS ORDERED: Ondansetron ODT 4 MG TAB.RAPDIS SL PRN (20:02)
[2020-07-15] MEDS ORDERED: *HR* Dextrose 50 % in Water (Vial) 50 ML VIAL IVP PRN (20:06)
[2020-07-15] MEDS ORDERED: D5% in Water 1,000 ML IVC PRN (20:06)
[2020-07-15] MEDS ORDERED: Dextrose Gel 15 GM/37.5 ML TUBE PO PRN ×2 (20:06)
[2020-07-15] MEDS ORDERED: Potassium Chloride Elixir 20 MEQ/15 ML UDC PO ONE (20:12)
[2020-07-15 20:23] LABS: Chol/HDL Ratio 5.2 (0-4.9); Cholesterol 191 mg/dL (< 200); HDL Cholesterol 37 mg/dL (40-59); LDL Cholesterol,Calculated 121 mg/dL (< 100); Magnesium 1.9 mg/dL (1.6-2.6); Phosphorous 3.7 mg/dL (2.7-4.5); Triglycerides 167 mg/dL (< 150)
[2020-07-15] MEDS: *HR* Heparin 5,000 UNIT/ML VIAL SQ SCH (20:52)
[2020-07-15] MEDS: Acetaminophen/Aspirin/Caffeine TABLET PO PRN ×2 (23:02→23:07)
[2020-07-15] MEDS ORDERED: hydrOXYzine pamoate 25 MG CAPSULE PO PRN (23:49)
[2020-07-16] MEDS ORDERED: Insulin LISPRO 300 UNITS/3 ML VIAL SQ SCH
[2020-07-16] MEDS: Insulin LISPRO 300 UNITS/3 ML VIAL SQ SCH ×2 (02:31→05:39)
[2020-07-16] MEDS ORDERED: amLODIPine 5 MG TABLET PO ONE (02:42)
[2020-07-16] MEDS ORDERED: Ipratropium 1 PUFF INHALER IH SCH (05:00)
[2020-07-16] MEDS: *HR* Heparin 5,000 UNIT/ML VIAL SQ SCH (05:53)
[2020-07-16 07:07] LABS: Basophils % 0.4 %; Eosinophils # 0.1 K/mcL (0.0-0.6); Eosinophils % 1.8 %; Hematocrit 45.9 % (35.3-44.9); Hemoglobin 14.8 g/dL (11.5-15.4); Immature Granulocytes % 0.5 % (0-4); Lymphocytes # 1.6 K/mcL (0.6-4.6); Lymphocytes % 29.2 %; Mean Corpuscular HGB Conc 32.2 g/dL (31.6-35.5); Mean Corpuscular Hemoglobin 26.4 pg (28.0-33.3); Mean Corpuscular Volume 81.8 fL (83.0-100.0); Mean Platelet Volume 9.4 fL (9.4-12.4); Monocytes # 0.5 K/mcL (0.0-1.3); Monocytes % 8.8 %; Neutrophils # 3.3 K/mcL (1.6-8.9); Platelet Count 249 K/mcL (140-400); Prothrombin Time 11.5 Seconds (9.4-12.1); Red Blood Count 5.61 M/mcL (3.82-4.97); Red Cell Distribution Width 15.3 % (11.5-14.5); Segmented Neutrophils % 59.3 %; White Blood Count 5.5 K/mcL (4.3-11.1)
[2020-07-16 07:09] LABS: Activated Partial Thrombo Time 56.2 Seconds (26.0-36.0)
[2020-07-16 07:28] LABS: BUN/Creatinine Ratio 13 (6-26); Blood Urea Nitrogen 11 mg/dL (6-20); Calcium 9.4 mg/dL (8.6-10.3); Carbon Dioxide 26 mEq/L (23-29); Chloride 103 mEq/L (98-107); Glucose 137 mg/dL (70-105); Osmolality,Calculated 290 (280-300); Potassium 3.8 mEq/L (3.5-5.1); Sodium 139 mEq/L (136-145); eGFR For African Americans > 60 (> 60); eGFR For Non-African Americans > 60 (> 60)
[2020-07-16] MEDS: atenoloL 25 MG TABLET PO SCH (07:47)
[2020-07-16] MEDS ORDERED: Aspirin 81 MG TAB.CHEW PO SCH (09:00)
[2020-07-16] MEDS ORDERED: Fluticasone Propionate Nasal 50 MCG/SPRAY BOTTLE NS SCH (09:00)
[2020-07-16] MEDS ORDERED: Gabapentin 300 MG CAPSULE PO SCH (09:00)
[2020-07-16] MEDS ORDERED: amLODIPine 5 MG TABLET PO SCH (09:00)
[2020-07-16 10:47] VITALS: BP 176/99
== END 2020-07-16 11:38 | disposition home or self-care (01) ==
LOC: EMEROOARM 13:03 → CDU 13:03
PROVIDERS: ADMIT Pharmacist; ATTEND Pharmacist

== ENCOUNTER 2021-09-09 22:58 | Inpatient (IN) ==
[2021-09-10] MEDS ORDERED: Morphine Sulfate 2 MG/ML SYRINGE IVP ONE ×2 (00:06→01:32)
[2021-09-10] MEDS ORDERED: Ondansetron 4 MG/2 ML VIAL IVP ONE (00:06)
[2021-09-10 00:28] LABS: Basophils % 0.4 %; Eosinophils # 0.1 K/mcL (0.0-0.6); Hematocrit 46.1 % (35.3-44.9); Hemoglobin 14.6 g/dL (11.5-15.4); Immature Granulocytes % 1.3 % (0-4); Lymphocytes % 25.5 %; Mean Corpuscular HGB Conc 31.7 g/dL (31.6-35.5); Mean Corpuscular Hemoglobin 25.7 pg (28.0-33.3); Mean Platelet Volume 9.3 fL (9.4-12.4); Monocytes # 0.6 K/mcL (0.0-1.3); Monocytes % 7.4 %; Neutrophils # 5.1 K/mcL (1.6-8.9); Platelet Count 274 K/mcL (140-400); Red Blood Count 5.69 M/mcL (3.82-4.97); Red Cell Distribution Width 15.8 % (11.5-14.5); Segmented Neutrophils % 64.4 %; White Blood Count 7.9 K/mcL (4.3-11.1)
[2021-09-10 00:36] LABS: Alanine Aminotransferase 10 Units/L (7-52); Albumin 4.1 g/dL (3.5-5.7); Albumin/Globulin Ratio 1.2 (1.1-2.2); Alkaline Phosphatase 101 Units/L (34-104); Aspartate Amino Transferase 11 Units/L (13-39); BUN/Creatinine Ratio 11 (6-26); Bilirubin,Direct 0.1 mg/dL (0.0-0.2); Bilirubin,Indirect 0.2 mg/dL (0.0-1.0); Bilirubin,Total 0.3 mg/dL (0.3-1.0); Blood Urea Nitrogen 11 mg/dL (6-20); Calcium 9.4 mg/dL (8.6-10.3); Carbon Dioxide 29 mEq/L (23-29); Chloride 101 mEq/L (98-107); Globulin 3.5 g/dL (2.4-3.5); Glucose 98 mg/dL (70-105); Lipase 34 Units/L (11-82); Osmolality,Calculated 287 (280-300); Potassium 3.5 mEq/L (3.5-5.1); Sodium 139 mEq/L (136-145); Total Protein 7.6 g/dL (6.4-8.9); eGFR For African Americans > 60 (> 60); eGFR For Non-African Americans > 60 (> 60)
[2021-09-10] MEDS ORDERED: Isovue-370 500 ML BOTTLE IVP ONE (00:56)
[2021-09-10 02:02] LABS: Bacteria,Urine Few per hpf (None-Few); Bilirubin,Urine Negative (Negative); Blood,Urine Negative (Negative); Clarity,Urine Clear (Clear); Color,Urine Colorless (Yellow); Glucose,Urine (UA) Normal (Normal); Ketones,Urine Negative (Negative); Leukocyte Esterase,Urine Small (Negative); Nitrite,Urine Negative (Negative); PH,Urine 6.5 pH Units (5.0-8.0); Protein,Urine Negative (Neg-Trace); RBC,Urine 0-3 per hpf (0-3); Specific Gravity,Urine 1.025 (1.010-1.025); Squamous Epithelial Cell,Urine Few per hpf (None-Few); Urobilinogen,Urine Normal (Normal); WBC,Urine 0-3 per hpf (0-3)
[2021-09-10] MEDS ORDERED: Aspirin 81 MG TAB.CHEW PO ONE (04:19)
[2021-09-10] MEDS ORDERED: Nitroglycerin 0.4 MG TAB.SUBL SL ONE (04:20)
[2021-09-10] MEDS ORDERED: Melatonin 3 MG TABLET PO PRN ×2 (05:48→17:43)
[2021-09-10] MEDS ORDERED: Naloxone 0.4 MG/ML INJ IVP PRN (05:48)
[2021-09-10] MEDS ORDERED: Acetaminophen 325 MG TABLET PO PRN (05:48)
[2021-09-10] MEDS ORDERED: *HR* HYDROcodone/Acet 5/325 mg TABLET PO PRN (05:48)
[2021-09-10] MEDS ORDERED: D5% in Water 1,000 ML IVC PRN (05:51)
[2021-09-10] MEDS ORDERED: *HR* Dextrose 50 % in Water (Syg) 50 ML SYRINGE IVP PRN (05:51)
[2021-09-10] MEDS ORDERED: Dextrose Gel 15 GM/37.5 ML TUBE PO PRN ×2 (05:51)
[2021-09-10] MEDS: Ondansetron 4 MG/2 ML VIAL IVP PRN ×2 (06:38→19:45)
[2021-09-10] MEDS: *HR* OxyCODONE Immed Rel 5 MG TABLET PO PRN ×3 (06:39→19:54)
[2021-09-10] MEDS: Insulin LISPRO 300 UNITS/3 ML VIAL SUBQ SCH ×4 (07:12→20:26)
[2021-09-10] MEDS: Sennosides/Docusate Sodium TABLET PO SCH ×2 (08:09→20:27)
[2021-09-10 09:13] LABS: Prothrombin Time 11.6 Seconds (9.4-12.1)
[2021-09-10 09:15] LABS: Activated Partial Thrombo Time 59.2 Seconds (26.0-36.0)
[2021-09-10] MEDS ORDERED: 0.9 % Sodium Chloride 500 ML ONE ×2 (11:13→11:30)
[2021-09-10] MEDS ORDERED: Lidocaine/EPI 1:100k 1% 50 ML VIAL ONE (11:13)
[2021-09-10] MEDS ORDERED: *HR* Midazolam HCl 2 MG/2 ML VIAL IVP ONE ×2 (11:28→11:43)
[2021-09-10] MEDS ORDERED: *HR* FentaNYL (PF) 100 MCG/2 ML VIAL IVP ONE ×2 (11:28→11:43)
[2021-09-10] MEDS ORDERED: Ampicillin/Sulbactam 1,500 MG in 0.9 % Sodium Chloride Mini Bag 100 ML IVPB ONE (11:51)
[2021-09-10] MEDS ORDERED: Ondansetron 4 MG/2 ML VIAL ONE (12:34)
[2021-09-10] MEDS ORDERED: Isovue-300 50ML VIAL IVP ONE ×2 (12:40)
[2021-09-10] MEDS ORDERED: Prochlorperazine 10 MG/2 ML VIAL IVP PRN (13:16)
[2021-09-10] MEDS: *HR* Heparin 5,000 UNIT/ML VIAL SQ SCH ×2 (13:16→20:27)
[2021-09-10] MEDS ORDERED: tiZANidine 4 MG TABLET PO PRN (17:43)
[2021-09-10] MEDS ORDERED: *HR* OxyCODONE Immed Rel 5 MG TABLET PO PRN (17:49)
[2021-09-10] MEDS: atenoloL 25 MG TABLET PO SCH (17:50)
[2021-09-10] MEDS: amLODIPine 5 MG TABLET PO SCH (17:51)
[2021-09-10] MEDS: Gabapentin 400 MG CAPSULE PO SCH (20:40)
[2021-09-10] MEDS ORDERED: *HR* HYDROmorphone (PF) 1 MG/ML SYRINGE IVP ONE (20:41)
[2021-09-11] MEDS: *HR* OxyCODONE Immed Rel 5 MG TABLET PO PRN (02:29)
[2021-09-11] MEDS: *HR* Heparin 5,000 UNIT/ML VIAL SQ SCH ×3 (06:23→20:58)
[2021-09-11 06:56] LABS: Basophils % 0.2 %; Eosinophils % 0.1 %; Immature Granulocytes % 0.4 % (0-4)
[2021-09-11 06:58] LABS: Hematocrit 43.1 % (35.3-44.9); Hemoglobin 13.4 g/dL (11.5-15.4); Immature Platelets 2.7 % (1.1-6.1); Lymphocytes # 1.6 K/mcL (0.6-4.6); Lymphocytes % 13.2 %; Mean Corpuscular HGB Conc 31.1 g/dL (31.6-35.5); Mean Corpuscular Hemoglobin 25.4 pg (28.0-33.3); Mean Corpuscular Volume 81.8 fL (83.0-100.0); Mean Platelet Volume 9.2 fL (9.4-12.4); Monocytes # 0.9 K/mcL (0.0-1.3); Monocytes % 7.6 %; Neutrophils # 9.7 K/mcL (1.6-8.9); Platelet Count 278 K/mcL (140-400); Red Blood Count 5.27 M/mcL (3.82-4.97); Red Cell Distribution Width 16.3 % (11.5-14.5); Segmented Neutrophils % 78.5 %; White Blood Count 12.3 K/mcL (4.3-11.1)
[2021-09-11 07:07] LABS: INR 1.1; Prothrombin Time 12.6 Seconds (9.4-12.1)
[2021-09-11 07:11] LABS: Estimated Average Glucose 163 mg/dl; Hemoglobin A1C 7.3 %
[2021-09-11 07:16] LABS: BUN/Creatinine Ratio 11 (6-26); Blood Urea Nitrogen 10 mg/dL (6-20); Calcium 9.3 mg/dL (8.6-10.3); Carbon Dioxide 27 mEq/L (23-29); Chloride 98 mEq/L (98-107); Glucose 138 mg/dL (70-105); Osmolality,Calculated 283 (280-300); Sodium 136 mEq/L (136-145); eGFR For African Americans > 60 (> 60); eGFR For Non-African Americans > 60 (> 60)
[2021-09-11] MEDS: amLODIPine 5 MG TABLET PO SCH (08:58)
[2021-09-11] MEDS: Aspirin Enteric Coated 81 MG Tablet PO SCH (08:58)
[2021-09-11] MEDS: Sennosides/Docusate Sodium TABLET PO SCH ×2 (08:59→20:59)
[2021-09-11] MEDS: Gabapentin 400 MG CAPSULE PO SCH ×3 (09:00→20:58)
[2021-09-11] MEDS: Insulin LISPRO 300 UNITS/3 ML VIAL SUBQ SCH ×4 (09:01→20:51)
[2021-09-11] MEDS: Ketorolac 30 MG/ML VIAL IVP SCH ×3 (09:03→21:00)
[2021-09-11] MEDS: atenoloL 25 MG TABLET PO SCH (09:13)
[2021-09-11] MEDS ORDERED: *HR* OxyCODONE Immed Rel 5 MG TABLET PO PRN (10:06)
[2021-09-11 10:13] LABS: Hemoglobin 13.7 g/dL (11.5-15.4); Mean Corpuscular HGB Conc 31.9 g/dL (31.6-35.5); Mean Corpuscular Hemoglobin 25.8 pg (28.0-33.3); Mean Corpuscular Volume 80.8 fL (83.0-100.0); Mean Platelet Volume 9.3 fL (9.4-12.4); Platelet Count 260 K/mcL (140-400); Red Blood Count 5.32 M/mcL (3.82-4.97); Red Cell Distribution Width 16.2 % (11.5-14.5); White Blood Count 12.8 K/mcL (4.3-11.1)
[2021-09-11 10:32] LABS: BUN/Creatinine Ratio 11 (6-26); Blood Urea Nitrogen 12 mg/dL (6-20); Carbon Dioxide 27 mEq/L (23-29); Chloride 99 mEq/L (98-107); Glucose 180 mg/dL (70-105); Osmolality,Calculated 284 (280-300); Potassium 4.1 mEq/L (3.5-5.1); Sodium 135 mEq/L (136-145); eGFR For African Americans > 60 (> 60); eGFR For Non-African Americans 54 (> 60)
[2021-09-11] MEDS ORDERED: 0.9 % Sodium Chloride 1,000 ML IVC ONE (15:28)
[2021-09-11] MEDS ORDERED: 0.9 % Sodium Chloride 500 ML IVC ONE (15:36)
[2021-09-12] MEDS: Ketorolac 30 MG/ML VIAL IVP SCH ×4 (02:27→20:07)
[2021-09-12 05:17] LABS: Hematocrit 41.6 % (35.3-44.9); Hemoglobin 13.2 g/dL (11.5-15.4); Mean Corpuscular HGB Conc 31.7 g/dL (31.6-35.5); Mean Corpuscular Hemoglobin 26.4 pg (28.0-33.3); Mean Corpuscular Volume 83.2 fL (83.0-100.0); Mean Platelet Volume 9.3 fL (9.4-12.4); Platelet Count 233 K/mcL (140-400); Red Cell Distribution Width 16.4 % (11.5-14.5); White Blood Count 11.4 K/mcL (4.3-11.1)
[2021-09-12 05:28] LABS: Calcium 9.3 mg/dL (8.6-10.3); Potassium 4.2 mEq/L (3.5-5.1)
[2021-09-12] MEDS: *HR* Heparin 5,000 UNIT/ML VIAL SQ SCH ×3 (05:32→20:07)
[2021-09-12] MEDS: Gabapentin 400 MG CAPSULE PO SCH ×3 (07:50→20:06)
[2021-09-12] MEDS: Sennosides/Docusate Sodium TABLET PO SCH ×2 (07:50→20:06)
[2021-09-12] MEDS: Insulin LISPRO 300 UNITS/3 ML VIAL SUBQ SCH ×4 (07:50→20:07)
[2021-09-12] MEDS: Aspirin Enteric Coated 81 MG Tablet PO SCH (07:50)
[2021-09-12] MEDS: 0.9 % Sodium Chloride 1,000 ML IVC SCH (09:24)
[2021-09-12] MEDS ORDERED: Isovue-300 50ML VIAL IVP ONE (12:02)
[2021-09-12] MEDS ORDERED: *HR* OxyCODONE Immed Rel 5 MG TABLET PO ONE (16:28)
[2021-09-12] MEDS: atenoloL 25 MG TABLET PO SCH (17:25)
[2021-09-12] MEDS: amLODIPine 5 MG TABLET PO SCH (17:25)
[2021-09-13] MEDS: 0.9 % Sodium Chloride 1,000 ML IVC SCH ×2 (00:57→12:58)
[2021-09-13] MEDS: Ketorolac 30 MG/ML VIAL IVP SCH ×2 (00:57→08:30)
[2021-09-13 04:04] VITALS: O2SAT 97
[2021-09-13] MEDS: *HR* Heparin 5,000 UNIT/ML VIAL SQ SCH (05:39)
[2021-09-13 06:37] LABS: BUN/Creatinine Ratio 17 (6-26); Blood Urea Nitrogen 20 mg/dL (6-20); Calcium 8.8 mg/dL (8.6-10.3); Carbon Dioxide 27 mEq/L (23-29); Chloride 102 mEq/L (98-107); Glucose 168 mg/dL (70-105); Osmolality,Calculated 288 (280-300); Potassium 3.9 mEq/L (3.5-5.1); Sodium 136 mEq/L (136-145); eGFR For African Americans > 60 (> 60); eGFR For Non-African Americans 50 (> 60)
[2021-09-13 07:51] VITALS: BP 131/83; PULSE 77; TEMP 97.6
[2021-09-13] MEDS: Insulin LISPRO 300 UNITS/3 ML VIAL SUBQ SCH ×2 (08:30→12:16)
[2021-09-13] MEDS: Sennosides/Docusate Sodium TABLET PO SCH (08:31)
[2021-09-13] MEDS: Gabapentin 400 MG CAPSULE PO SCH (08:31)
[2021-09-13] MEDS: amLODIPine 5 MG TABLET PO SCH (08:31)
[2021-09-13] MEDS: Aspirin Enteric Coated 81 MG Tablet PO SCH (08:31)
[2021-09-13] MEDS: atenoloL 25 MG TABLET PO SCH (08:31)
== END 2021-09-13 14:00 | disposition home or self-care (01) | DRG 694 ==
LOC: 3BNU 22:58 → EMEROOARM 22:58 → SUATTDRO 09-10 04:50 → 3BNU 09-10 05:18
PROVIDERS: ADMIT Internal Medicine; ATTEND Registered Nurse